=== PATIENT | male | born 2000 | race Caucasian/White ===

== ENCOUNTER 2022-01-04 00:54 | Day surgery (SDC) | payer OTHER, SELFPAY ==
[2022-01-03 10:32] VITALS: BMI 20.7
--- NOTE | 2022-01-03 10:32 | PC.NURSE ---
Report to the Outpatient Waiting Room, entrance under the green pavilion located off [facility], at time _0630___ on date __01/04/22 . OR Time: 829___. - You and your visitor will be asked a series of questions to screen for COVID 19 for your protection. - Only one visitor is allowed at this time. - The patient visitor is requested to leave or wait in car when not with patient. - A mask is required within the hospital. Patients may have clear liquids (water, carbonated beverages, clear teas, apple juice) until 3 hours prior to surgery with a maximum of 20 ounces. - No food from midnight until time of surgery - Infants may have breast milk until 4 hours before surgery, formula 6 hours prior to surgery. - Children will be allowed to drink immediately following surgery. If applicable, please bring a bottle or sippy cup to assist with drinking. Juice, water, soda, and popsicles are readily available. For infants on formula, please bring formula the day of surgery. Pacifiers are allowed. Take the following medications with a SIP of water the morning of surgery: __SYMBICORT, LORAZEPAM IF NEEDED Medications to discontinue per physician NONE Date to take last dose Please no make-up, nail [place], hairspray, perfume, deodorant, or body powder the day of surgery. No jewelry (including any body piercings) or valuables the day of surgery, leave them at home. Please take a shower or bath the night before, or the morning of, surgery with an antibacterial soap. Wear comfortable, loose fitting clothing. Children are encouraged to wear pajamas. - Jewelry must be removed prior to entering the operating room. Rings and piercings that are not removed may be cut off. - The hospital will not accept responsibility for valuables. - Please leave all valuables, including medications, at home the day of surgery. If you are going home after surgery, a licensed driver trainer must drive you home. - NO public transportation without another adult. - We recommend that an adult stay with you for 24 hours following discharge. - We also recommend that you do not drive, make important decision, drink alcoholic beverages, or take any drugs that were not prescribed by your health care provider for at least 24 hours after your discharge time. For Pediatric surgeries, we recommend two adults accompany the child home (only one inside the building at this time). Follow any additional instructions given to you from your surgeon. If you or anyone in your household have experienced Covid symptoms in the past week, please notify your surgeon or the nurse liaison at the phone number below for possible testing. Telephone instructions given to ___PARENT WITH PT PERMISSION and asked if any additional questions and then verbalized understanding. Patient advised to call surgeon office or pre surgery nurse liaison [phone] if any additional questions.
--- NOTE | 2022-01-03 16:11 | PM.IMHP ---
H&P: HPI History of Present Illness Date/Time: 01/03/22 16:11 Chief Complaint: recurrent tonsillitis chronic tonsillitis throat pain Narrative: patient presents for planned surgical procedure no change in symptoms no change in history Review of Systems Constitutional: Constitutional: Denies fatigue, Denies fever(s) and Denies lethargy Eyes: Eyes: Denies blurry vision and Denies change in vision ENT: Reports as per HPI Cardiovascular: Cardiovascular: Denies chest pain Respiratory: Respiratory: Denies cough Endocrine: Endocrine: Denies fatigue Hematologic/Lymphatic: Hematologic/Lymphatic: Denies easy bleeding, Denies easy bruising and Denies lymphadenopathy Allergic/Immunologic: Allergic/Immunologic: Denies seasonal rhinorrhea [facility] Social History Social History Smoking packs per day: 0.5 Smoking cigarettes per day: 10.0 Years smoked: 4 Smoking pack-years: 2.00 Smoking status: Former smoker Tobacco type: e-cigarettes/vaping Additional smoking assessment comments: NICOTINE ONLY POUCH, OCCASIONAL VAPING Alcohol intake: never Alcohol use details: RARE USE Substance use: never Substance use type: marijuana Other substance usage details: DAILY USE Living arrangements: with family Meds Home Medications and Allergies Home Medications Medication Instructions Recorded Confirmed Type budesonide-formoterol HFA 160 1 inh INHALATION DAILY 12/17/21 01/03/22 History mcg-4.5 mcg/actuation aerosol inhaler gabapentin 600 mg tablet 600 mg PO TID 12/17/21 01/03/22 History lorazepam 0.5 mg tablet 0.5 mg PO DAILY PRN 12/17/21 01/03/22 History zolpidem 10 mg tablet 10 mg PO QHS PRN 12/17/21 01/03/22 History Allergies Allergy/AdvReac Type Severity Reaction Status Date / Time No Known Allergies Allergy Mild Verified 01/03/22 10:22 Exam Const: General: cooperative, healthy appearing, comfortable, well developed and alert HENMT: Head: normal to inspection, normocephalic and atraumatic Ears: hearing grossly normal bilaterally, external ears normal, TM's normal bilaterally and EAC's normal General nose exam: Normal external nose present, Normal nares present, No nasal polyps present, Normal nasal mucous membranes and turbinates present and Normal septum present Face and sinus: normal facial exam Mouth: Yes Normal oral and palatal mucosa present, Yes lip normal, Yes tongue normal, Yes oropharynx normal and Yes moist mucous membranes Teeth and gingiva: dentition normal and gingiva normal Throat: posterior oropharynx normal, tonisls abnormal ( Cryptic chronic appearing) and uvula midline Eyes: General: appearance normal, both eyes and all related structures Periorbital: periorbital findings normal Eyelids: eyelids normal Conjunctivae: conjunctivae normal Sclera: sclerae normal Neck: Neck: normal visual inspection, full ROM and no lymphadenopathy Thyroid: thyroid normal Lymphatic: no lymphadenopathy noted Resp: Effort & Inspection: normal respiratory effort and able to speak in complete sentences Cardio: Jugular venous distension: no JVD Neuro: Cranial nerves: Yes CN's II-XII intact bilaterally Assessment and Plan Assessment and plan (1) Throat pain: Code(s): R07.0 - Pain in throat Status: Acute Assessment and Plan: plan is for OR for tonsillectomy. Risks were discussed including bleeding infection damage to any structure above the clavicles damage to any structure during the maintenance and/or induction of anesthesia. Postoperative bleeding 3-5%. Need for narcotic. Need for time off work. Need for pain medication. Failure to resolve symptoms. Tooth pain ear pain throat pain tongue pain tongue numbness throat numbness ear numbness tooth numbness. Patient voiced understanding and agreed. (2) Chronic tonsillitis: Code(s): J35.01 - Chronic tonsillitis Status: Acute (3) Recurr
[2022-01-04] VITALS (11 sets, daily range): BP systolic 116–143; BP diastolic 72–90; PULSE 66–101; RESP 13–20; TEMP 36.3–37.2; O2SAT 98–100; BMI 20.9
[2022-01-04] MEDS: ACETAMINOPHEN 500 MG TABLET 1000 MG PO (07:01)
--- NOTE | 2022-01-04 07:13 | WPDHPUPDATE1 ---
History and Physical Update Update Date/Time: 01/04/22 07:13 History and Physical has been reviewed, including an updated exam of the patient. There are NO changes in the patient's condition. Risks, benefits, and alternatives have been discussed and questions answered. Patient agrees to proceed with procedure.
--- NOTE | 2022-01-04 07:59 | WPDANESEPPF ---
Anes - Initial Pre Proc Eval Procedure: Operation Date: 01/04/22 08:30 Proposed Procedures p Tonsillectomy - Reynaldo Obando MD Date/Time: 01/04/22 07:59 Surgeon: Reynaldo Obando MD Pre Op Diagnosis: Chronic Tonsillitis Patient Data Age: 21 Gender: M Height: 1.7 m Weight: 60.6 kg Last Vital Signs Temp 36.3 C L 01/04/22 07:04 Pulse 93 01/04/22 07:04 Resp 20 01/04/22 07:04 BP 116/80 01/04/22 07:04 Pulse Ox 100 01/04/22 07:04 Allergies Allergy/AdvReac Type Severity Reaction Status Date / Time No Known Allergies Allergy Mild Verified 01/04/22 06:57 Home Medications Medication Instructions Recorded Confirmed Type budesonide-formoterol HFA 160 1 inh INHALATION DAILY 12/17/21 01/04/22 History mcg-4.5 mcg/actuation aerosol inhaler gabapentin 600 mg tablet 600 mg PO TID 12/17/21 01/04/22 History lorazepam 0.5 mg tablet 0.5 mg PO DAILY PRN 12/17/21 01/04/22 History zolpidem 10 mg tablet 10 mg PO QHS PRN 12/17/21 01/04/22 History Patient hx anesthesia problems: none Family hx anesthesia problems: none Results Review: All pre-operative results and documents have been reviewed as part of the pre-operative evaluation. [facility] Past Medical History Medical History (Updated 01/04/22 @ 08:01 by Juarez Mccormack MD) ADHD Anxiety Asthma Depression Fibromyalgia Social History Social History Smoking packs per day: 0.5 Smoking cigarettes per day: 10.0 Years smoked: 4 Smoking pack-years: 2.00 Smoking status: Former smoker Tobacco type: e-cigarettes/vaping Additional smoking assessment comments: NICOTINE ONLY POUCH, OCCASIONAL VAPING Alcohol intake: never Alcohol use details: RARE USE Substance use: never Substance use type: marijuana Other substance usage details: DAILY USE Living arrangements: with family Anes - Eval Final PreProcedure Day of Procedure 01/04/22 07:59 Patient weight: normal Heart: regular rate and rhythm Lungs: clear to auscultation Airway: Mallampati scale class II Neurological: alert and oriented Last oral intake: >/= 8 hours ASA classification: III Emergent: no Anesthetic plan: proceed Anesthesia type and monitoring: general ETT and standard monitoring Results Review: All pre-operative results and documents have been reviewed as part of the pre-operative evaluation. Informed Consent: The patient's anesthetic plan and its attendant risks and benefits were discussed with the patient/family/POA. Questions were solicited and answers provided to the satisfaction of the patient/family/POA.
[2022-01-04] MEDS: LACTATED RINGERS 1,000 ML 30 ML IV CONT ×2 (08:03→10:32)
--- NOTE | 2022-01-04 09:10 | W.PM.PROC2 ---
Procedure Note - Detailed Date of Procedure 01/04/22 Pre-op Diagnosis Chronic Tonsillitis, halitosis, tonsil lithiasis Post-op Diagnosis Same Procedure Performed Tonsillectomy Surgeon Reynaldo Obando MD Anesthesia General Indications See above Findings Endophytic tonsils pockets of purulence stones Description of Procedure Patient identified consent verified. Patient brought operating room. Time-out performed. General anesthesia induced endotracheal tube secured airway. Patient prepped and draped for procedure. Second time-out performed. McIvor mouth gag inserted to reveal tonsils described above. Dissected in extracapsular plane bilaterally using Bovie electrocautery at a setting of 10. Any bleeding was cauterized with suction Bovie electrocautery setting of 12. Again this was a bilateral procedure with similar findings on both sides. The hoda diver mouth gag was then lowered and reopened 30 seconds later to reveal excellent hemostasis and no bleeding. I performed all dictated portions of the procedure. Care the patient turned over to Anesthesiology. Total blood loss less than 2 cc. Estimated Blood Loss 2 Drains No Packing No Pathology Yes Complications No immediate complications Condition Stable Disposition PACU
--- NOTE | 2022-01-04 09:23 | SUR.PHASEI ---
9895- CALLED DR. MORAN TO UPDATE THAT PT HAS SOME SUSANA RED BLOOD COMING UP WHEN COUGH. PT DEAN TO BEDSIDE. HE STATED HE HAS A SMALL BLEED. PT MOTHER CONTACTED AND PT UPDATED WELL. PT WILL GO BACK TO OR TO CONTROL BLEED. NEW CONSENT SIGNED AND PT AWARE.
--- NOTE | 2022-01-04 09:38 | SUR.PHASEI ---
0938- PT BACK TO OR TO CONTROL TONSIL BLEED.
--- NOTE | 2022-01-04 10:37 | P.OP_ITS ---
Procedure Note - Detailed Date of Procedure 01/04/22 Pre-op Diagnosis Postoperative tonsillectomy hemorrhage Post-op Diagnosis Same Procedure Performed Control of postoperative hemorrhage Surgeon Reynaldo Obando MD Anesthesia General Indications See above Findings Bleeding vessel right mid pole controlled with Bovie suction electrocautery at a setting of 15 Description of Procedure Patient identified consent verified. Patient brought operating room. Time-out performed. General anesthesia induced endotracheal tube secured. Second time- out performed after patient prepped and draped. McIvor mouth gag inserted reveal clot in the right fossa this was suctioned. A bleeding vessel noted in the mid pole. This was cauterized Bovie suction electrocautery at a setting of 15 the small squirting vessel was traced back to a larger vessel which was also cauterized. Total blood loss approximately 10 cc. OG placed to suction out old blood from the stomach GI tract. I performed all dictated portions. No obvious complications. Patient taken to PACU after care given anesthesia and after the McIvor mouth gag was removed. Estimated Blood Loss 10 Drains No Packing No Pathology None sent Complications No immediate complications Condition Stable Disposition PACU
[2022-01-04] MEDS: fentaNYL CITRATE INJ (*CRX) 100 MCG/2 ML VIAL 25 MCG IV PUSH ×5 (10:39→12:01)
[2022-01-04] MEDS: oxyCODONE HCL (*CRX) 5 MG TAB IR PO (11:29)
== END 2022-01-04 12:10 | disposition home or self-care (01) ==
PROVIDERS: PCP Family Medicine; Visit Provider Otolaryngology
PROC: (CPT 42960; principal; 2022-01-04 08:30)
DX: J35.01 Chronic tonsillitis (principal); R19.6 Halitosis; J35.8 Other chronic diseases of tonsils and adenoids; J95.830 Postprocedural hemorrhage of a respiratory system organ or structure following a respiratory system procedure; F41.8 Other specified anxiety disorders; M79.7 Fibromyalgia; F12.90 Cannabis use, unspecified, uncomplicated; F17.290 Nicotine dependence, other tobacco product, uncomplicated; Z79.51 Long term (current) use of inhaled steroids
CPT/HCPCS: 42960; 42826; 88300; 88302; A9270; J0330; J1100; J2250; J2405; J2704; J3010; J7120

== ENCOUNTER 2022-08-22 13:19 | Outpatient (CLI) | payer OTHER, SELFPAY ==
--- NOTE | ~2022-08-22 | XR_ITS ---
EXAMINATION: XR chest 2V DATE: 08/22/2022 13:43 INDICATION: Lymphadenopathy and fevers TECHNIQUE: Frontal and lateral views of the chest are obtained COMPARISON: None available FINDINGS: The lungs are free of acute opacities. No pleural effusion or pneumothorax. The cardiomedia stinal silhouette is normal. The visualized bones and soft tissues are unremarkable. IMPRESSION: 1. No acute cardiopulmonary abnormality. Reviewed, dictated and finalized at location L. ICAL INSTRUMENT TECHNICIAN
[2022-08-22 13:53] LABS: Basophils Absolute Auto 0.1 K/mm3 (0.0-0.1); Basophils Percent Auto 1.1 % (0.2-1.2); Eosinophils Absolute Auto 0.5 K/mm3 (0-0.3); Eosinophils Percent Auto 4.5 % (0-4.4); Hematocrit 47.5 % (42.0-52.0); Hemoglobin 15.9 g/dL (14.0-18.0); Immature Granulocyte Absolute 0.09 K/mm3 (0.00-0.031); Immature Granulocyte Percent A 0.8 % (0-0.5); Lymphocytes Absolute Auto 3.17 K/mm3 (0.9-3.2); Lymphocytes Percent Auto 28.9 % (18.3-44.2); Mean Corpuscular HGB Conc 33.5 g/dl (32-36); Mean Corpuscular Hemoglobin 31.4 pg (26-34); Mean Corpuscular Volume 93.7 fl (80-100); Mean Platelet Volume 9.1 fl (7.4-10.4); Monocytes Absolute Auto 0.8 K/mm3 (0.1-0.6); Monocytes Percent Auto 7.4 % (2.6-8.5); Neutrophils Absolute Auto 6.3 K/mm3 (1.3-6.7); Neutrophils Percent Auto 57.3 % (45.5-73.1); Platelet Count Result 310 k/mm3 (150-375); Red Blood Count 5.07 M/mm3 (4.6-6.20); Red Cell Distribution Width 12.4 % (11.5-14.5)
[2022-08-22 14:07] LABS: Alanine Aminotransferase 25 U/L (6-50); Alkaline Phosphatase 58 U/L (38-126); Anion Gap 8 mmol/L (8-16); Aspartate Amino Transferase 28 U/L (17-59); Bilirubin,Total 0.2 mg/dL (0.2-1.3); Blood Urea Nitrogen 19 mg/dL (9-20); Calcium 9.2 mg/dL (8.4-10.2); Carbon Dioxide 28 mmol/L (22-30); Chloride 105 mmol/L (98-107); Estimated Glomerular Filt Rate > 60; Glucose 98 mg/dL (65-110); Potassium 4.2 mmol/L (3.4-5.0); Sodium 141 mmol/L (137-145)
[2022-08-22 14:48] LABS: HIV 1/2 Ab P24 Ag Result Negative (Negative)
[2022-08-23 12:44] LABS: Rapid Plasma Reagin Reactive (NonReactive)
[2022-09-02 08:38] LABS: Treponema pallidum Ab FTA ABS REACTIVE
== END 2022-08-22 13:20 | disposition home or self-care (01) ==
LOC: ANHIMG 13:25
PROVIDERS: PCP Family Medicine; Visit Provider Internal Medicine Infectious Disease
DX: R50.9 Fever, unspecified (principal); R59.1 Generalized enlarged lymph nodes
CPT/HCPCS: 36415; 71046; 80053; 85025; 86038; 86592; 86703; 86780; G0432

== ENCOUNTER 2022-08-30 15:49 | Outpatient (CLI) | payer OTHER, SELFPAY ==
[2022-08-30 16:31] LABS: Basophils Absolute Auto 0.1 K/mm3 (0.0-0.1); Basophils Percent Auto 0.9 % (0.2-1.2); Eosinophils Percent Auto 0.1 % (0-4.4); Hematocrit 45.6 % (42.0-52.0); Hemoglobin 15.3 g/dL (14.0-18.0); Immature Granulocyte Absolute 0.04 K/mm3 (0.00-0.031); Immature Granulocyte Percent A 0.5 % (0-0.5); Lymphocytes Absolute Auto 1.57 K/mm3 (0.9-3.2); Lymphocytes Percent Auto 21.2 % (18.3-44.2); Mean Corpuscular HGB Conc 33.6 g/dl (32-36); Mean Corpuscular Hemoglobin 31.6 pg (26-34); Mean Corpuscular Volume 94.2 fl (80-100); Mean Platelet Volume 9.7 fl (7.4-10.4); Monocytes Absolute Auto 0.4 K/mm3 (0.1-0.6); Monocytes Percent Auto 5.8 % (2.6-8.5); Neutrophils Absolute Auto 5.3 K/mm3 (1.3-6.7); Neutrophils Percent Auto 71.5 % (45.5-73.1); Platelet Count Result 284 k/mm3 (150-375); Red Blood Count 4.84 M/mm3 (4.6-6.20); Red Cell Distribution Width 12.3 % (11.5-14.5); White Blood Count 7.4 K/mm3 (4.5-10.0)
[2022-08-30 16:46] LABS: Alanine Aminotransferase 21 U/L (6-50); Albumin Level 5.2 g/dL (3.5-5.1); Alkaline Phosphatase 66 U/L (38-126); Anion Gap 10 mmol/L (8-16); Aspartate Amino Transferase 27 U/L (17-59); Bilirubin,Total 0.6 mg/dL (0.2-1.3); Blood Urea Nitrogen 9 mg/dL (9-20); Calcium 9.4 mg/dL (8.4-10.2); Carbon Dioxide 26 mmol/L (22-30); Chloride 104 mmol/L (98-107); Estimated Glomerular Filt Rate > 60; Glucose 109 mg/dL (65-110); Lactate Dehydrogenase 185 U/L (120-246); Potassium 3.9 mmol/L (3.4-5.0); Sodium 140 mmol/L (137-145)
[2022-08-30 16:55] LABS: Immunoglobulin A 104 mg/dL (70-400); Immunoglobulin G 606 mg/dL (700-1600); Immunoglobulin M 77 mg/dL (40-230)
[2022-08-30 17:21] LABS: Erythrocyte Sedimentation Rate 1 mm/hr (0-20)
[2022-08-30 17:26] LABS: HIV 1/2 Ab P24 Ag Result Negative (Negative)
[2022-08-30 18:31] LABS: Hepatitis B Surface Antigen Negative (Negative)
[2022-08-30 18:36] LABS: HAV RESULT Negative (Negative); Hepatitis B Core IgM Result Negative (Negative)
[2022-08-30 18:48] LABS: Hepatitis C Virus Antibody Negative (Negative)
[2022-09-02 13:24] LABS: Toxoplasma IgM Antibody <8.00 AU/mL (<8.00)
[2022-09-02 13:25] LABS: Toxoplasma IgG Antibody <7.20 IU/mL (<7.20)
[2022-09-03 18:58] LABS: Immunoglobulin E 10 kU/L (<=114)
[2022-09-04 13:45] LABS: Angiotensin Converting Enzyme 49 U/L (9-67)
== END 2022-08-30 15:50 | disposition home or self-care (01) ==
LOC: ANHLAB 15:53
PROVIDERS: PCP Family Medicine; Visit Provider Internal Medicine Infectious Disease
DX: R59.1 Generalized enlarged lymph nodes (principal)
CPT/HCPCS: 36415; 80053; 80074; 82164; 82784; 82785; 83615; 85025; 85652; 86038; 86703; 86777; G0432

== ENCOUNTER 2024-07-28 23:35 | Emergency (ER) | payer OTHER, SELFPAY ==
--- NOTE | ~2024-07-28 | CT_ITS ---
Noncontrast CT scan of the cervical spine Technique: Multiple contiguous axial [address] images of the cervical spine were obtained and rec onstructed in 2D sagittal and coronal planes on the acquisition scanner. Dose reduction technique was used on this scan by utilizing automated exposure control, adjustment of the mA and/or kV according to patient size. The dose-length product (DLP) was 316.28 mGy-cm. Clinical History: Pain Findings: No fractures or dislocations. Unremarkable visualized bony structures. The intervertebral disc spaces are preserved. No prevertebral soft tissue swelling. Impression: No fracture or subluxation of the cervical spine. Reviewed, dictated and finalized at location . [employer]OR [employer] MATERNITY SERVICES Impression: No fracture or subluxation of the cervical spine.
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
[2024-07-28 23:38] VITALS: BP 149/72; PULSE 110; RESP 22; TEMP 36.6; O2SAT 100
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
[2024-07-29 02:35] VITALS: BP 152/95; PULSE 85; RESP 17; TEMP 36.6; O2SAT 100
== END 2024-07-29 02:36 | disposition home or self-care (01) ==
PROVIDERS: Emergency Provider Emergency Medicine; PCP Family Medicine
DX: S16.1XXA Strain of muscle, fascia and tendon at neck level, initial encounter (principal); S40.022A Contusion of left upper arm, initial encounter; F90.9 Attention-deficit hyperactivity disorder, unspecified type; F41.9 Anxiety disorder, unspecified; F32.A Depression, unspecified; M79.7 Fibromyalgia; F17.290 Nicotine dependence, other tobacco product, uncomplicated; F17.220 Nicotine dependence, chewing tobacco, uncomplicated; Z79.899 Other long term (current) drug therapy; V49.40XA Driver injured in collision with unspecified motor vehicles in traffic accident, initial encounter
CPT/HCPCS: 70450; 72125; 99284